=== PATIENT | female | born 1975 | race Caucasian/White ===

== ENCOUNTER → 2021-03-18 | Outpatient (CLI) | payer MEDICARE ==
[~2021-03-18] MED LIST: AMIT25 PO; AMOX250 PO; CIPR500 PO; CLON.5 PO; CYCL10 PO; GABA300T24 PO; HYDACE5 PO; HYOS.125 SL; MAGCIT300 PO; MULVITMINE; MULVITMINE PO; OXYACE7.5T PO; PANT20 PO; PROM25 PO; RXHYDACE PO; RXOXYACE PO; RXSULTRIDS PO; SULTRIDS PO
== END | disposition home or self-care (01) ==
LOC: LAB SHORT 13:36
DX: D06.0 Carcinoma in situ of endocervix (principal)
CPT/HCPCS: 88305

== ENCOUNTER → 2021-03-29 | Outpatient (CLI) | payer MEDICARE, OTHER | END | disposition home or self-care (01) | LOC: LAB SHORT 08:16 | DX: N92.0 Excessive and frequent menstruation with regular cycle (principal) | CPT/HCPCS: 88305 ==

== ENCOUNTER 2021-04-19 10:28 | Day surgery (SDC) | payer MEDICARE, OTHER ==
[~2021-04-19] VITALS: Ht 162.6 cm; Wt 80.9 kg
[2021-04-19] MEDS ORDERED: BACLOFEN10 M4 PO (11:09)
--- NOTE | 2021-04-19 12:17 | NUR ---
04/19/21 1217 Samreen Barillas NO ORDERS FOR PRE OP ANTIBIOTICS PER DR WHITING'S ORDERS.
--- NOTE | 2021-04-19 13:15 | NUR ---
PT AWAKE, C/O PAIN 5/10 R LQ AND R LOWER BACK. PT GIVEN CRACKERS TO EAT AND WATER.
--- NOTE | 2021-04-19 13:23 | NUR ---
PT GIVE PAIN MEDICATION PO. TOLERATING PO FOOD AND FLUIDS.
--- NOTE | 2021-04-19 13:45 | NUR ---
PT GIVEN ANOTHER PERCOCET FOR PAIN 4/5. NO ACUTEN DISTRESS. PT ABLE TO DRESS SELF. TAKEN TO BATHROOM TO VOID. PT REQUESTS A CLEAN PERIPAD DUE TO SMALL AMOUNT OF DARK DRAINAGE. REPORTS NO DIFFICULTY VOIDING. REVIEWED DISCHARGE INSTRUCTIONS.
--- NOTE | 2021-04-19 14:00 | NUR ---
PT DISCHARGED VIA WHEELCHAIR. HOME WITH FRIEND.
== END 2021-04-19 14:00 | disposition home or self-care (01) ==
LOC: ORSCMMR 10:28 → ORD 12:00 → ORSCMMR 14:00
PROVIDERS: Obstetrics & Gynecology
PROC: 0UBC7ZX Excision of Cervix, Via Natural or Artificial Opening, Diagnostic (ICD-10-PCS; principal; 2021-04-19 12:00)
DX: R87.613 High grade squamous intraepithelial lesion on cytologic smear of cervix (HGSIL) (principal); N72 Inflammatory disease of cervix uteri; F17.210 Nicotine dependence, cigarettes, uncomplicated; Z86.73 Personal history of transient ischemic attack (TIA), and cerebral infarction without residual deficits
CPT/HCPCS: 88305; 93005; 93010; A9270; J0171; J1100; J1170; J1885; J2250; J2405; J2704; J3010; J7120

== ENCOUNTER → 2021-05-05 | Outpatient (CLI) | payer MEDICARE, OTHER ==
[~2021-05-05] MED LIST changes: +BACLOFEN10 M4 PO
[2021-05-05 14:51] LABS: Candida species (DNA Probe) Negative (NEGATIVE); G. vaginalis (DNA Probe) Positive (NEGATIVE); T. vaginalis (DNA Probe) Negative (NEGATIVE)
== END | disposition home or self-care (01) ==
LOC: LAB 11:38 → LAB SHORT 11:38
PROVIDERS: Obstetrics & Gynecology
DX: N76.0 Acute vaginitis (principal)
CPT/HCPCS: 87480; 87510; 87660

== ENCOUNTER 2024-06-28 14:48 | Emergency (ER) | payer MEDICARE, OTHER ==
[~2024-06-28] VITALS: Ht 162.6 cm; Wt 72.6 kg
[~2024-06-28 14:48] MED LIST changes: +ACET500 PO; +BENADRYL25 MG PO; +CEFD300 PO; +DOCU100 PO; +IBUP600 PO; +IBUP800 PO; +ONDA4ODT MM; +OXAYDO5 M1 PO; +Roxicodone5 MG PO; +SIME80CH PO
[2024-06-28 15:26] LABS: BASOPHILS ABSOLUTE AUTO 0.05 K/mm3 (0.00-0.23); BASOPHILS PERCENT AUTO 1 % (0-2); EOSINOPHILS PERCENT AUTO 7 % (0-6); Hematocrit 46.6 % (33.0-51.0); Hemoglobin 15.8 g/dL (11.5-16.0); IMMATURE GRAN ABSOLUTE AUTO 0.01 K/mm3 (0.00-0.10); IMMATURE GRAN PERCENT AUTO 0 % (0-1); LYMPHOCYTES ABSOLUTE AUTO 1.25 K/mm3 (0.84-5.20); LYMPHOCYTES PERCENT AUTO 21 % (21-46); MONOCYTES ABSOLUTE AUTO 0.65 K/mm3 (0.16-1.47); MONOCYTES PERCENT AUTO 11 % (4-13); Mean Corpuscular HGB 31.1 pg (26.0-34.0); Mean Corpuscular HGB Conc 33.9 g/dL (31.5-36.5); Mean Corpuscular Volume 92 fL (80-100); Mean Platelet Volume 10.5 fL (9.1-12.4); NEUTROPHILS ABSOLUTE AUTO 3.55 K/mm3 (1.96-9.15); NEUTROPHILS PERCENT AUTO 60 % (41-73); Platelet Count 248 K/mm3 (150-400); RDW Coefficient Variation 12.4 % (11.7-14.2); RDW Standard Deviation 41.9 fL (35.1-46.3); Red Blood Cell Count 5.08 M/mm3 (3.80-5.20); White Blood Cell Count 5.91 K/mm3 (4.00-11.30)
[2024-06-28 16:18] LABS: Albumin, Blood 4.1 g/dL (3.4-5.0); Albumin/Globulin Ratio 1.1 (0.8-1.8); Bilirubin, Total 0.5 mg/dL (0.1-1.0); Bun/Creatinine Ratio 11.3 (12.0-20.0); Calcium, Blood 9.8 mg/dL (8.5-10.1); Creatinine, Blood 0.62 mg/dL (0.40-1.00); Globulin, Blood 3.8 g/dL (2.2-4.0); Potassium, Blood 5.3 mmol/L (3.5-5.5); Total Protein, Blood 7.9 g/dL (6.4-8.2)
[2024-06-28 17:51] LABS: Source, Urine Clean Catch
[2024-06-28] MEDS ORDERED: NEURONTIN300 MG PO (17:52)
[2024-06-28 17:53] LABS: Appearance, Urine Clear (Clear); Bilirubin, Urine Neg (Neg); Blood, Urine Neg (Neg); Glucose Qualitative, Urine Neg (Neg); Ketones, Urine Neg (Neg); Leukocyte Esterase, Urine 3+ (Neg); Nitrite, Urine Neg (Neg); Protein, Urine Neg (Neg); Specific Gravity, Urine 1.005 (1.003-1.022); Urobilinogen, Urine NORM (Normal); pH, Urine 6.5 (5.0-8.0)
[2024-06-28 18:04] LABS: Color, Urine Pale Yellow (P-Yellow); Red Blood Cells, Urine 0-2 /hpf (0-2)
[2024-06-28 18:05] LABS: Bacteria Few /hpf; Squamous Epithelial Cells Few /hpf (Few)
[2024-06-28 18:30] VITALS: BP 129/97
[2024-06-28] MEDS ORDERED: Methocarbamol 500 MG Tab PO ONE (18:40)
[2024-06-28] MEDS ORDERED: Trimethoprim/Sulfamethoxazole DS Tab PO ONE (18:40)
[2024-06-28] MEDS ORDERED: Robaxin750 MG PO (18:45)
[2024-06-28] MEDS ORDERED: SULTRIDS PO (18:45)
[2024-06-28] MEDS ORDERED: LIDO700A20 TOP (18:45)
== END 2024-06-28 18:55 | disposition home or self-care (01) ==
LOC: ER 14:48
PROVIDERS: Student in an Organized Health Care Education/Training Program
DX: M54.17 Radiculopathy, lumbosacral region (principal); M54.31 Sciatica, right side; N30.00 Acute cystitis without hematuria; F17.210 Nicotine dependence, cigarettes, uncomplicated; Z88.5 Allergy status to narcotic agent; Z79.899 Other long term (current) drug therapy
CPT/HCPCS: 74177; 80053; 81001; 85025; 87086; 93005; 93010; 99284-25; A9270; Q9967